=== PATIENT | female | born 1945 | race Caucasian/White ===

== ENCOUNTER 2022-11-21 13:28 | Inpatient (IN) | payer OTHER, MEDICARE ==
[~2022-11-21] VITALS: Ht 167.6 cm; Wt 45.8 kg
[2022-11-21 13:30] VITALS: BP_SYST 142
--- NOTE | 2022-11-21 13:31 | NUR ---
ER DR. RENDON EXAMINING PT
--- NOTE | 2022-11-21 13:32 | NUR ---
CODE STROKE CALLED
--- NOTE | 2022-11-21 13:33 | NUR ---
Patient transported to radiology via GURNEY, accompanied by RN AND CT STAFF.
--- NOTE | 2022-11-21 13:34 | NUR ---
ER at bedside examining patient.
--- NOTE | 2022-11-21 13:38 | NUR ---
RETURN TO ER
--- NOTE | 2022-11-21 13:44 | NUR ---
TELENEURO REQUESTPUT IN
--- NOTE | 2022-11-21 13:49 | NUR ---
TELENEURO CONSULTING WITH PATIENT AND PATIENT'S
[2022-11-21 14:35] LABS: BASOPHILS % (AUTO) 0.4 % (0.0-2.0); EOSINOPHILS % (AUTO) 0.2 % (0.0-4.0); HEMATOCRIT 35.6 % (36-48); HEMOGLOBIN 12.4 g/dL (12.0-16.0); LYMPHOCYTES # (AUTO) 0.4 K/uL (1.0-5.5); LYMPHOCYTES % (AUTO) 6.6 % (20.5-51.5); MEAN CORPUSCULAR HEMOGLOBIN 33 pg (27-31); MEAN CORPUSCULAR HGB CONC 35 % (32-36); MEAN CORPUSCULAR VOLUME 94 fL (79.0-98.0); MONOCYTES # (AUTO) 0.5 K/uL (0.0-1.0); MONOCYTES % (AUTO) 7.9 % (1.7-9.3); NEUTROPHILS # (AUTO) 5.4 K/uL (1.8-7.7); NEUTROPHILS % (AUTO) 84.9 % (40.0-70.0); PLATELET COUNT (AUTO) 252 K/uL (130-430); RED CELL DISTRIBUTION WIDTH 13.9 % (9.0-15.0); WHITE BLOOD COUNT (AUTO) 6.3 K/uL (4.8-10.8)
--- NOTE | 2022-11-21 14:37 | NUR ---
SPOKE TO DAVID SWAIN: TELEMED NEURO CONSULT; STATED HE WILL PAGE THE MD FOR FOLLOWUP
--- NOTE | 2022-11-21 14:40 | NUR ---
Ansley booker in [facility] - 11/21/22 at 1546 by [email or web address] TELENEURO CONSULTING WITH PATIENT AND PATIENT'S
[2022-11-21 14:50] LABS: ANION GAP 6 (5-15); CALCIUM 8.9 mg/dL (8.4-11.0); CHLORIDE 92 mmol/L (98-107); CREATININE 0.44 mg/dL (0.55-1.30); GLUCOSE 89 mg/dL (70-99); PROTHROMBIN TIME 10.1 SECS (9.5-12.5); UREA NITROGEN, BLOOD 14 mg/dL (8-21)
[2022-11-21 14:56] LABS: ALANINE AMINOTRANSFERASE 70 U/L (12-78); ALBUMIN 3.7 g/dL (3.4-4.8); ASPARTATE AMINOTRANSFERASE 43 U/L (10-37); CHOLESTEROL 150 mg/dL (<200); HDL CHOLESTEROL 103 mg/dL (>55); TOTAL BILIRUBIN 0.6 mg/dL (0.0-1.0); TRIGLYCERIDES 43 mg/dL (30-150)
--- NOTE | 2022-11-21 15:47 | NUR ---
Placed in room 02 . Placed on engine monitor, blood pressure machine and pulse oximeter. To gown for exam. Side rails up. Report given to TIANA TURNER.
[2022-11-21 15:53] LABS: BILIRUBIN,URINE NEGATIVE (NEGATIVE); BLOOD, URINE NEGATIVE (NEGATIVE); CLARITY/URINE CLEAR (CLEAR); COLOR,URINE YELLOW (YELLOW); GLUCOSE,URINE NEGATIVE (NEGATIVE); KETONES,URINE NEGATIVE (NEGATIVE); LEUKOCYTE ESTERASE ,URINE NEGATIVE (NEGATIVE); NITRITE, URINE NEGATIVE (NEGATIVE); PH,URINE 7.5 (5.0-8.0); PROTEIN URINE NEGATIVE (NEGATIVE); UROBILINOGEN,URINE 0.2 (0.2-1.0)
--- NOTE | 2022-11-21 16:00 | NUR ---
PT BIB AMBULANCE-ACLS FROM HOME. PT PRESENTS TO BE A&OX4 AT THIS TIME. PER PT'S LAST WELL KNOWN WAS 1215. PT STATES CHEST PAIN PRIOR TO ARRIVAL TO HOSPITAL. PT DESCRIBES PAIN PRESSURE IN THE MIDDLE OF CHEST WHEN TAKING DEEP BREATHS. PT DENIES PAIN AT THIS TIME. LEFT SIDE FACIAL DROOPING NOTED. PT'S HAS A HISTORY OF STROKE IN SEPTEMBER 2022. SAFETY PRECAUTIONS IN PLACE.
[2022-11-21 16:09] LABS: BARBITURATE, URINE NEGATIVE (NEG <=200); BENZODIAZEPINE, URINE NEGATIVE (NEG <=150); CANNABINOID, URINE NEGATIVE (NEG <=50); COCAINE, URINE NEGATIVE (NEG <=150); METHAMPHETAMINES SCREEN,URINE NEGATIVE (NEG <=500); OPIATE, URINE NEGATIVE (NEG <=100); PHENCYCLIDINE SCREEN,URINE NEGATIVE (NEG <=25); UR TRICYCLIC ANTIDEPRESSANTS NEGATIVE (NEG <=300); URINE AMPHETAMINE NEGATIVE (NEG <=500); URINE METHADONE NEGATIVE (NEG <=200); URINE OXYCODONE SCREEN NEGATIVE (NEG <=100); URINE PROPOXYPHENE SCREEN NEGATIVE (NEG <=300)
--- NOTE | 2022-11-21 17:42 | NUR ---
BELONGINGS COMPLETED. PT INFORMED THAT MEDICATION LIST IS NEEDED. NOT AVAILABLE AT THIS TIME.
[2022-11-21] MEDS ORDERED: LAM25 PO (18:11)
[2022-11-21] MEDS ORDERED: LIP80 PO (18:11)
[2022-11-21] MEDS ORDERED: ALEN70TA84 PO (18:11)
[2022-11-21] MEDS ORDERED: ASA81 PO (18:11)
--- NOTE | 2022-11-21 18:12 | NUR ---
VERONIKA AND TENISHA OBTAINED, MED REC COMPLETED.
--- NOTE | 2022-11-21 18:48 | NUR ---
Admit bed requested Patient will be admitted to care of . Admitted to TELEMETRY unit. Diagnosis TIA VS STROKE Inpatient (Yes or No) YES Observation (Yes or No) NO Orientation concerns or request close to nursing station (Yes or No) NO Covid Status PENDING On vent or bipap NO Isolation requirements PENDING Needs a sitter NO From Home (Yes or if No enter name of facility) YES Requires Dialysis (Yes or No) NO Med Rec Completed (Yes of No) YES
--- NOTE | 2022-11-21 19:36 | NUR ---
PT STABLE. PT ENDORSED TO TIANA GUTIERREZ
--- NOTE | 2022-11-21 20:08 | NUR ---
Received report from Margret Pt AOX4 VSS Verbally responsive Able to make need known Pt admitted to Tele Will continue to monitor
--- NOTE | 2022-11-21 22:05 | NUR ---
, [facility] [address]-[phone]
--- NOTE | 2022-11-21 22:08 | NUR ---
Patient will be admitted to care of Dr Watson to [id number]. Belongings list completed. Complete and up to date summary report printed. SBAR report to be given at bedside with opportunity for questions.
[2022-11-21 22:18] VITALS: BP_SYST 144
[2022-11-21 22:20] VITALS: BP_SYST 144
--- NOTE | 2022-11-21 23:27 | NUR ---
22:00 pm-Received pt from ED. Pt awake and oriented 4. Ambulated with minimal assist. Skin dry and multiple ecchymosis on bue and ble. Skin tear/laceration on Rt garcia with bandage. Also blisters on Rt ankle and left ankle due to shoes. C/o mild Headache. denied any weakness. Able to move all extremities.
[2022-11-22 04:00] VITALS: BP_SYST 117
--- NOTE | 2022-11-22 05:59 | NUR ---
Closing note- pt remains stable. V/s stable afebrile. Tele- NSR. Denied any distress.
[2022-11-22 08:08] VITALS: BP_SYST 127
[2022-11-22 08:48] LABS: BASOPHILS % (AUTO) 0.7 % (0.0-2.0); EOSINOPHILS % (AUTO) 0.5 % (0.0-4.0); HEMATOCRIT 38.2 % (36-48); LYMPHOCYTES # (AUTO) 0.5 K/uL (1.0-5.5); LYMPHOCYTES % (AUTO) 12.9 % (20.5-51.5); MEAN CORPUSCULAR HEMOGLOBIN 32 pg (27-31); MEAN CORPUSCULAR HGB CONC 34 % (32-36); MEAN CORPUSCULAR VOLUME 93 fL (79.0-98.0); MONOCYTES # (AUTO) 0.4 K/uL (0.0-1.0); MONOCYTES % (AUTO) 10.7 % (1.7-9.3); NEUTROPHILS # (AUTO) 3.1 K/uL (1.8-7.7); NEUTROPHILS % (AUTO) 75.2 % (40.0-70.0); PLATELET COUNT (AUTO) 268 K/uL (130-430); RED CELL DISTRIBUTION WIDTH 14.2 % (9.0-15.0); WHITE BLOOD COUNT (AUTO) 4.2 K/uL (4.8-10.8)
[2022-11-22 09:26] LABS: ANION GAP 6 (5-15); CALCIUM 9.1 mg/dL (8.4-11.0); CHLORIDE 100 mmol/L (98-107); CREATININE 0.45 mg/dL (0.55-1.30); GLUCOSE 92 mg/dL (70-99); UREA NITROGEN, BLOOD 12 mg/dL (8-21)
[2022-11-22 09:32] LABS: ALANINE AMINOTRANSFERASE 63 U/L (12-78); ALBUMIN 3.3 g/dL (3.4-4.8); ASPARTATE AMINOTRANSFERASE 41 U/L (10-37); LIPASE 129 U/L (73-393); TOTAL BILIRUBIN 0.4 mg/dL (0.0-1.0)
--- NOTE | 2022-11-22 11:40 | NUR ---
CONSULTATION PAGED/CALLED Reason for Consultation: TIA Person Who was Notified: DR. MAJOR Consulting Physician: DR. Bernabe MAJOR [employer] Specialty: NEUROLOGY Ordering Physician: DR. BRUCE AND DR. HIGGINS
[2022-11-22 17:09] VITALS: BP_SYST 120
[2022-11-22 17:30] VITALS: BP_SYST 120
--- NOTE | 2022-11-22 19:16 | NUR ---
1730:This leader writer(Primary RN)received telephone orders from DR Camarillo to discharge patient home,and follow up with her neurologists. This leader writer educated patient and caregiver on discharge instructions,including continuing all home medications as indicated, stroke information given,and signs and symptoms to monitor and return to ED. Patient and caregiver both verbalize understanding.
== END 2022-11-22 20:16 | disposition home or self-care (01) | DRG 69 ==
LOC: SED 13:28 → STU 19:09
PROVIDERS: ADMIT Internal Medicine; ATTEND Internal Medicine
DX: G45.9 Transient cerebral ischemic attack, unspecified (principal); E78.5 Hyperlipidemia, unspecified; M81.0 Age-related osteoporosis without current pathological fracture; Z20.822 Contact with and (suspected) exposure to COVID-19; G43.109 Migraine with aura, not intractable, without status migrainosus; Z79.82 Long term (current) use of aspirin; Z79.899 Other long term (current) drug therapy; Z87.891 Personal history of nicotine dependence; Z86.73 Personal history of transient ischemic attack (TIA), and cerebral infarction without residual deficits
CPT/HCPCS: 36415; 70450-TC; 71045; 76376; 80053; 80061; 80307; 81003; 83690; 84443; 84484; 85025; 85610-TC; 85730-TC; 86886; 86900; 86901; 87081; 93005; 93306; 93880; 97116-GP; 97163-GP; 99285; G0378